=== PATIENT | male | born 1955 ===

== ENCOUNTER 2017-12-12 10:39 | Emergency (ER) | payer OTHER ==
[~2017-12-12] VITALS: Ht 170.2 cm; Wt 136.1 kg
[~2017-12-12 10:39] MED LIST: BUMETANIDE1 MG; COZAAR50 MG; HUMALOG100 UNIT/1; LANTUS SOL100 UNIT/1; LIPITOR20 MG; VERAPAMIL ER120 MG
== END 2017-12-12 19:54 | disposition home or self-care (01) ==
LOC: ER 10:39
DX: K52.9 Noninfective gastroenteritis and colitis, unspecified (principal)

== ENCOUNTER 2017-12-30 08:18 | Outpatient (CLI) | payer OTHER | END 2017-12-30 08:27 | disposition home or self-care (01) | LOC: LAB 08:18 | DX: I10 Essential (primary) hypertension (principal); E11.65 Type 2 diabetes mellitus with hyperglycemia; E78.2 Mixed hyperlipidemia ==

== ENCOUNTER 2018-04-04 07:40 | Emergency (ER) | payer OTHER ==
[~2018-04-04] VITALS: Ht 170.2 cm; Wt 127.0 kg
[2018-04-04] MEDS ORDERED: DICLOFENAC SODI50 MG PO (13:13)
== END 2018-04-04 13:26 | disposition home or self-care (01) ==
LOC: ER 07:40
DX: M54.89 Other dorsalgia (principal); R06.02 Shortness of breath

== ENCOUNTER 2019-06-23 08:13 | Emergency (ER) | payer OTHER ==
[~2019-06-23] VITALS: Ht 170.2 cm; Wt 108.9 kg
[~2019-06-23 08:13] MED LIST changes: +DICLOFENAC SODI50 MG PO
[2019-06-23] MEDS ORDERED: NEURONTIN800 MG (08:32)
[2019-06-23] MEDS ORDERED: GLIPIZIDE10 MG (08:32)
== END 2019-06-23 14:06 | disposition home or self-care (01) ==
LOC: ER 08:13
DX: M54.5 Low back pain (principal); M51.36 Other intervertebral disc degeneration, lumbar region